=== PATIENT | female | born 1990 | race Caucasian/White ===

== ENCOUNTER 2020-04-19 19:03 | Emergency (ER) | payer BC ==
[~2020-04-19] VITALS: Ht 157.5 cm; Wt 63.2 kg
[2020-04-19] MEDS ORDERED: HYDR-3965 PO (20:16)
[2020-04-19] MEDS ORDERED: HYDROcodone/acetaminophen 5mg/325mg tablet PO ONE (20:20)
[2020-04-19 20:30] VITALS: BP 115/66
== END 2020-04-19 20:32 | disposition home or self-care (01) ==
LOC: ER 19:04
DX: M25.571 Pain in right ankle and joints of right foot (principal); M85.661 Other cyst of bone, right lower leg; Z79.899 Other long term (current) drug therapy
CPT/HCPCS: 73610; 73630; 99284